=== PATIENT | female | born 1970 | race Caucasian/White ===

== ENCOUNTER → 2024-02-08 | Outpatient (CLI) | payer MEDICAID, SELFPAY ==
--- NOTE | 2024-02-08 10:41 | XR_ITS ---
Examination: Shoulder,right, 3 views Technique: Shoulder AP internal rotation, AP external rotation, Y view shoulder, 3 views Exam date and time :February 08, 2024 1218 hours INDICATIONS: Right shoulder pain beginning 6 months ago. FINDINGS: Significant osteopenia Moderate narrowing glenohumeral joint No shoulder fracture or dislocation IMPRESSION: Moderate narrowing glenohumeral joint
== END | disposition home or self-care (01) ==
PROVIDERS: PCP Physician Assistant; Referring Provider Physician Assistant; Visit Provider Physician Assistant
DX: M25.811 Other specified joint disorders, right shoulder (principal)
CPT/HCPCS: 73030

== ENCOUNTER → 2024-02-22 | Outpatient (CLI) | payer MEDICAID, SELFPAY ==
--- NOTE | 2024-02-22 | XR_ITS ---
Examination: Lumbar spine, 5 views Technique: Lumbar spine AP, lateral, coned lateral lower lumbar spine, bilateral obliques 5 views Exam date and time: February 21, 2023 1042 hours INDICATIONS: Lower back pain years getting worse FINDINGS: Severe osteopenia Lumbar dextroscoliosis 11 degrees Diffuse moderate to advanced facet arthropathy No acute lumbar fracture Advanced degenerative disc disease L4-L5 Moderate degenerative disc disease L5-S1 No spondylolisthesis IMPRESSION: Advanced degenerative disc disease L4-L5 Moderate degenerative disc disease L5-S1
--- NOTE | 2024-02-22 | XR_ITS ---
EXAMINATION: Cervical spine, 5 views Technique: Cervical spine AP, AP odontoid, lateral, bilateral obliques, 5 views Exam date and time: February 22, 2024 1052 hours INDICATIONS: Neck pain years getting worse FINDINGS: Severe osteopenia Minimal anterolisthesis C3 on C4, C4 on C5 Advanced degenerative disc disease C5-C6 Intact odontoid No cervical fracture Mild to moderate bilateral neural foraminal stenosis C5-C6, greater on the right side IMPRESSION: Advanced degenerative disc disease C5-C6 with bilateral neural foraminal stenosis at this level
== END | disposition home or self-care (01) ==
PROVIDERS: PCP Physician Assistant; Referring Provider Physician Assistant; Visit Provider Physician Assistant
DX: M50.322 Other cervical disc degeneration at C5-C6 level (principal); M48.02 Spinal stenosis, cervical region; M51.369 Other intervertebral disc degeneration, lumbar region without mention of lumbar back pain or lower extremity pain; M51.379 Other intervertebral disc degeneration, lumbosacral region without mention of lumbar back pain or lower extremity pain
CPT/HCPCS: 72050; 72110

== ENCOUNTER → 2024-04-30 | Outpatient (CLI) | payer MEDICAID, SELFPAY ==
--- NOTE | 2024-04-30 10:30 | XR_ITS ---
Examination: Breast ultrasound, unilateral, left complete Date and time of exam: April 30, 2024 1038 hrs. Indications: Mammogram December 17, 2023 17 mm nodule 12:00 position left breast Technique: Real-time miranda scale ultrasonographic imaging performed left breast including all 4 quadrants as well as nipple retroareolar and axillary region. Findings: No cystic or solid mass Impression: BI-RADS Category 1: Negative study
--- NOTE | 2024-04-30 11:00 | XR_ITS ---
Examination: Diagnostic digital mammography, unilateral, left Computer aided detection 3-D breast Tomosynthesis, unilateral Date and time of exam: 04/30/2024, 10:46 AM Comparisons: December 07, 2019 Indications: Further evaluation of abnormality 12:00 seen on prior screening exam Technique: Nonmagnified MLO, CC views of the left breast have been obtained, reconstructed from 3-D Tomosynthesis images. R2 computer aided detection program utilized for evaluation of suspicious masses and/or abnormal calcifications. 3-D Tomosynthesis images obtained. Technologist: Findings: There are scattered areas of fibroglandular density. Asymmetry persists at 12:00 on the MLO view. Otherwise no focal abnormality seen. Impression: Persistent asymmetry 12:00 on the MLO view. Findings are probably benign. Recommend 6 month follow-up left breast diagnostic mammogram and possible ultrasound BI-RADS category 0: Incomplete assessment; need additional imaging evaluation
== END | disposition home or self-care (01) ==
LOC: CDIM 10:27
PROVIDERS: Referring Provider Physician Assistant; Visit Provider Physician Assistant
DX: R92.8 Other abnormal and inconclusive findings on diagnostic imaging of breast (principal); N64.89 Other specified disorders of breast
CPT/HCPCS: 76641; 77061; 77065; G0279

== ENCOUNTER 2024-10-01 12:57 | Emergency (ER) | payer MEDICAID, SELFPAY ==
[2024-10-01 12:58] VITALS: BMI 26.2
[2024-10-01 13:43] VITALS: BP 120/81; PULSE 62; RESP 18; TEMP 36.9; O2SAT 97
--- NOTE | 2024-10-01 14:12 | XR_ITS ---
Examination: Tibia-Fibula, right , 2 views Technique: Tibia-fibula AP lateral 2 views Date and time of exam: October 01, 2024 1409 hours INDICATIONS: Patient fell today with injury to the lower leg, lower leg pain. FINDINGS: Moderate osteopenia. No fracture or dislocation IMPRESSION: No fracture or dislocation.
--- NOTE | 2024-10-01 15:04 | PD.EDLOWEX ---
Lower Extremity Injury RME/HPI General Chief Complaint: Extremity Injury, Lower Stated Complaint: R) LEG PAIN Time Seen by Provider: 10/01/24 13:32 Arrival date/time: 10/01/24 12:57 54-year-old female presents to the emergency department today for complaint of right leg pain patient reports that she was ran into by a dog. Limitations: no limitations Related Data Previous Rx's ?Medication ?Instructions ?Recorded Hydrocodone/Acetaminophen * (NORCO 1 tab PO HS PRN PAIN #14 tabs 03/09/15 5/325 *) acetaminophen 500 mg tablet 500 mg PO Q6HR PRN PAIN #28 tabs 09/08/16 (Tylenol Extra Strength) acetaminophen 500 mg capsule 1,000 mg (2 x 500 mg) PO Q6H PRN 04/07/22 fever or pain #30 caps docusate sodium 100 mg capsule 100 mg PO QDAY PRN Constipation 04/07/22 #60 caps hydrocodone 5 mg-acetaminophen 325 1 tab PO BID PRN pain #20 tabs 04/07/22 mg tablet ibuprofen 400 mg tablet 400 mg PO QID PRN fever or pain 04/07/22 #30 tabs sulfamethoxazole 800 1 tab PO BID #14 tabs 04/07/22 mg-trimethoprim 160 mg tablet (Bactrim DS) Allergies Allergy/AdvReac Type Severity Reaction Status Date / Time codeine Allergy Intermediate HIVES Verified 10/01/24 13:00 Review of Systems Review of Systems Systems Reviewed: All systems reviewed, normal except as documented Constitutional Constitutional: Reports system reviewed and no additional complaints, except as documented, Denies fever(s) and Denies headache(s) Eyes Eyes: Reports system reviewed and no additional complaints, except as documented and Denies blurry vision ENT Ears, Nose, Mouth, and Throat: Reports system reviewed and no additional complaints, except as documented, Denies headache(s), Denies nasal congestion and Denies nasal discharge Cardiovascular Cardiovascular: Reports system reviewed and no additional complaints, except as documented, Denies chest pain and Denies dyspnea Respiratory Respiratory: Reports system reviewed and no additional complaints, except as documented, Denies chest congestion, Denies cough and Denies dyspnea Gastrointestinal Gastrointestinal: Reports system reviewed and no additional complaints, except as documented and Denies abdominal pain Musculoskeletal Musculoskeletal: Reports system reviewed and no additional complaints, except as documented, Denies abnormal gait, Denies arthralgias, Denies numbness, Reports stiffness and Denies tingling Integumentary/Breasts Skin/Breast: Reports system reviewed and no additional complaints, except as documented and Denies rash Neurologic Neurologic: Reports system reviewed and no additional complaints, except as documented, Reports as per HPI, Denies abnormal gait, Denies headache(s), Denies numbness and Denies tingling Past Medical History Past Medical History NEUROLOGIC: Positive Neurological Disorders CARDIAC: Negative Congestive Heart Failure RESPIRATORY: Negative Chronic Obstructive Pulmonary Disease (COPD) GENITOURINARY: Negative Renal Disease ENDOCRINE: Negative Diabetes Mellitus Type 1 or Diabetes Mellitus Type 2 Surgical History SURGICAL: Positive Hysterectomy (25 years ago) Social History SMOKING STATUS: Current every day smoker SUBSTANCE USE: does not use ED Exam General Limitations: Present no limitations General appearance: Present alert and in no apparent distress Head Head exam: Present atraumatic, normocephalic and normal inspection Eye Eye exam: Present normal appearance, PERRL and EOMI; Absent conjunctival injection ENT ENT exam: Present normal exam, normal oropharynx and mucous membranes moist Neck Neck exam: Present normal inspection, full ROM and trachea midline Chest Chest inspection: Present normal inspection and symmetric chest wall rise Respiratory Respiratory exam: Present normal lung sounds bilaterally Cardiovascular Cardiovascular exam: Present regular rate, normal rhythm and normal heart sounds Abdominal Exam Abdominal exam: Present soft and normal bowel sounds Extremities Exam Extremities exam: Present full ROM, tenderness and normal capillary refill; Absent pedal edema, joint swelling or calf tenderness Back Exam Back exam: Present normal inspection and full ROM Neurological Exam Neurological exam: Present alert, oriented X3 and CN II-XII intact Psychiatric Psychiatric exam: Present normal affect and normal mood Skin Skin exam: Present warm, dry, intact and normal color Course Quality Measures none Orders Category Date Time Status XR tibia fibula RT 2V Stat Exams 10/01/24 14:12 Completed Vital Signs Vital signs: Vital Signs Temperature 98.4 F 10/01/24 13:43 Pulse Rate 62 10/01/24 13:43 Respiratory Rate 18 10/01/24 13:43 Blood Pressure 120/81 10/01/24 13:43 Pulse Oximetry (%) 97 10/01/24 13:43 Oxygen Delivery Method Room Air 10/01/24 13:43 O2 saturation 97% room air within the limits Extremity Injury, Lower MDM Narrative MDM Narrative:: 54-year-old female presents to the emergency department today for complaint of right leg pain patient reports that she was ran into by a dog. On exam patient has pain to the right leg patient has no bruising or swelling patient walks with steady gait Imaging obtained no acute emergent findings noted Patient discharged home in no distress to follow-up with primary care doctor in the next 24 to 48 hours and for any worsening symptoms to return to the ER immediately Patient data External records reviewed:: [facility] previous records Clinical information provided by:: patient Social determinants that could affect healthcare access:: none Patient has the following chronic illnesses:: see history How is presenting disease/condition affected by chronic disease/condition?: uneffected by Evaluation data The following diagnostics were reviewed and interpreted by me:: radiology exam(s) Lab and/or radiology exams considered but not ordered:: Radiology obtain Interpretation Summary: Reviewed by me Medications / Prescriptions Medications or Prescriptions considered but not ordered:: Given no meds Medication administrations:: Given no meds Consultations Consultation(s) initiated? (list below): No Diagnosis Extremity Injury, Lower Differential Diagnosis: other (Leg pain, muscle strain, muscle spasm) Most likely diagnosis given after review of the tests above:: Leg pain right Admission Indicated Admission indicated?: not indicated Admission Request Was there a request for admission?: No Disposition Plan Disposition Plan: Discharge Discharge Attestation Discharge Attestation: The patient and all family members were given an opportunity to ask questions and understood the discharge instructions. Discharge instructions specifically effects, indications for sooner follow up or return to the emergency department, and the expected course of current diagnosis. Patient condition: Stable Discharge Plan Plan Patient Disposition: HOME (Self Care) Discharge Disposition comment: Stable Prescriptions/Referrals Prescriptions/Med Rec: No Action Hydrocodone/Acetaminophen * (NORCO 5/325 *) 1 TAB tablet 1 tab PO HS PRN (Reason: PAIN) Qty: 14 0RF Rx Instructions: FOR PAIN acetaminophen [Tylenol Extra Strength] 500 MG tablet 500 mg PO Q6HR PRN (Reason: PAIN) Qty: 28 0RF hydrocodone-acetaminophen 5-325 mg tablet 1 tab PO BID MDD 4 PRN (Reason: pain) Qty: 20 0RF sulfamethoxazole-trimethoprim [Bactrim DS] 800-160 mg tablet 1 tab PO BID Qty: 14 0RF ibuprofen 400 mg tablet 400 mg PO QID PRN (Reason: fever or pain) Qty: 30 0RF docusate sodium 100 mg capsule 100 mg PO QDAY PRN (Reason: Constipation) Qty: 60 0RF acetaminophen 500 mg capsule 1,000 mg PO Q6H PRN (Reason: fever or pain) Qty: 30 0RF Referrals: No Primary/Family,Physician [Primary Care Provider] - 10/02/24 Problem List Clinical Impression: Leg pain, right Patient/Caregiver Discharge Instructions Education Materials: ED Muscle Strain, Extremity Additional Instructions: Please follow up with your primary care doctor in the next 24-48hrs for any worsening symptoms return here immediately Print Language: Sami Stand Alone Forms: Teresa Award Info., Patient Portal Info Letter PA/X [employer]AY [employer] Supervising Physician PA/X [employer] Supervising Physician: Dr. carol CRUMP Attestation MD Attestation The patient was seen by the midlevel practitioner. I, the co-signing physician, was present during the entire ER visit. While I did not physically examine the patient, I was available for consultation as needed. I agree with the plan and documentation.
== END 2024-10-01 15:17 | disposition home or self-care (01) ==
PROVIDERS: Emergency Provider Family Medicine
DX: M79.604 Pain in right leg (principal)
CPT/HCPCS: 73590; 99283